=== PATIENT | male | born 1990 | race Caucasian/White ===

== ENCOUNTER 2017-05-23 18:05 | Emergency (ER) | payer MEDICAID ==
[~2017-05-23] VITALS: Ht 172.7 cm; Wt 61.0 kg
[2017-05-23 18:09] VITALS: BP 152/73
== END 2017-05-23 19:24 | disposition home or self-care (01) ==
LOC: ED 19:00
DX: K02.9 Dental caries, unspecified (principal)
CPT/HCPCS: 99283